=== PATIENT | female | born 1995 | race Caucasian/White ===

== ENCOUNTER 2019-06-07 09:53 | Emergency (ER) | payer BC ==
[~2019-06-07] VITALS: Ht 152.4 cm; Wt 58.0 kg
--- NOTE | 2019-06-07 10:29 | PHYS DOC ---
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 Chronic intermi ttent sharp with dull component worse with palpation and movement. Pain is continuous at time and rated moderate. No urinary frequency urgency or burning. No dysuria. Prior workup pelvic ultrasound for evaluation of ovarian cysts. No new symptoms or complaints. LMP 3 weeks ago. ] Review of Systems Review of Systems ROS as per HPI All other systems were reviewed and found to be within normal limits, except as documented in this note. Allergies Allergies Allergies Coded Allergies Type Severity Reaction Last Updated Verified No Known Drug Allergies 06/07/19 No Physical Exam Physical Exam Constitutional: Well developed, well nourished, no acute distress, non-toxic appearance. [] HENT: Normocephalic, atraumatic, bilateral external ears normal, nose normal. [] Eyes: PERRLA, EOMI, conjunctiva normal, no discharge. [] Neck: Normal range of motion. [] Cardiovascular:Heart rate regular rhythm, no murmur [] Lungs & Thorax: Bilateral breath sounds clear to auscultation [] Abdomen: Bowel sounds normal, soft, min LLQ/pelvic pain/ttp. [] Extremities: No tenderness, no edema. [] Neurologic: Alert and oriented X 3, normal motor function, normal sensory function, no focal deficits noted. [] Psychologic: Affect normal, judgement normal, mood normal. [] Current Patient Data Vital Signs Vital Signs Date Time Temp Pulse Resp B/P (MAP) Pulse Ox O2 Delivery O2 Flow Rate FiO2 06/07/19 10:01 98.6 95 17 135/73 (93) 98 Room Air 98.6 Lab Values Laboratory Tests Test 06/07/19 10:15 06/07/19 10:19 Urine Collection Type Void Urine Color Yellow Urine Clarity Clear Urine pH 5.0 Urine Specific [place] >=1.030 Urine Protein Negative mg/dL (NEG-TRACE) Urine Glucose (UA) Negative mg/dL (NEG) Urine Ketones (Stick) Negative mg/dL (NEG) Urine Blood Negative (NEG) Urine Nitrite Negative (NEG) Urine Bilirubin Negative (NEG) Urine Urobilinogen Dipstick 0.2 mg/dL (0.2 mg/dL) Urine Leukocyte Esterase Small (NEG) Urine RBC Occ /HPF (0-2) Urine WBC 5-10 /HPF (0-4) Urine Squamous Epithelial Cells Many /LPF Urine Bacteria Moderate /HPF (0-FEW) Urine Mucus Mod /LPF POC Urine HCG, Qualitative Hcg negative (Negative) EKG EKG [] Radiology/Procedures Radiology/Procedures [] Course & Med Decision Making Course & Med Decision Making Pertinent Labs and Imaging studies reviewed. 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 No changes symptoms. Previous ultrasound performed. UA, negative. Patient scheduled for exp loratory lap. Recommend follow-up as scheduled.] Dragon Disclaimer Dragon Disclaimer This electronic medical record was generated, in whole or in part, using a voice recognition dictation system. Departure Departure Impression: Primary Impression: Chronic pelvic pain in female Disposition: 01 HOME, SELF-CARE Condition: STABLE Referrals: NO PCP (PCP) Patient Instructions: Pelvic Pain, Female, [id number]-[id number] Additional Instructions: Please take Tylenol and ibuprofen for pain. HUMBERTO SHERMAN DO Jun 07, 2019 10:29
[2019-06-07 10:33] LABS: BILIRUBIN,URINE NEGATIVE (NEG); CLARITY,URINE CLEAR; COLOR,URINE YELLOW; NITRITE,URINE NEGATIVE (NEG); PROTEIN,URINE NEGATIVE (NEG-TRACE); UROBILINOGEN,URINE 0.2 mg/dL (0.2 mg/dL)
[2019-06-07 10:41] LABS: SQUAMOUS EPITHELIAL CELL,UR MANY /LPF
[2019-06-07 10:42] LABS: BACTERIA,URINE MODERATE /HPF (0-FEW); RBC,URINE OCC /HPF (0-2)
[2019-06-07] MEDS: IBUPROFEN 200 MG TABLET. PO ONE (11:15)
[2019-06-07 11:48] VITALS: BP 127/61
== END 2019-06-07 11:50 | disposition home or self-care (01) ==
LOC: ER 09:53
DX: G89.29 Other chronic pain (principal); R10.2 Pelvic and perineal pain; R10.32 Left lower quadrant pain; R00.2 Palpitations
CPT/HCPCS: 81001; 81025; 87086; 99284